=== PATIENT | female | born 1960 | race Caucasian/White ===

== ENCOUNTER 2016-05-28 07:24 | Outpatient (CLI) ==
[2016-05-16 10:21] VITALS: BMI 24.7
[2016-05-28 08:16] LABS: CREATININE 0.84 mg/dL (0.60-1.30)
--- NOTE | 2016-05-28 10:04 | CT ---
EXAM: CT Abdomen with contrast. CT Pelvis with contrast. HISTORY: Rectal bleeding. Lower abdominal pain. COMPARISON: 02/26/2009. TECHNIQUE: Multiple axial images of the abdomen and pelvis were obtained following intravenous admi nistration of 75 mL of Omnipaque 350, low osmolar. Images were reformatted in the coronal plane. FINDINGS: The lung bases are clear. Degenerative changes present in the spine. Gallbladder is absent. The liver, pancreas, spleen, and adrenal glands are unremarkable. Right kidney is normal. There are multiple partially exophytic masses within the left kidney measur e between 70 and 98 HU. These are best seen on axial images 19, 26, 33 and 36 and coronal images 44 , 50, 58, and 60 with the largest measuring 1.6 cm diameter on coronal image 60, and 1.7 cm on coron al image 58. There are multiple additional subcentimeter low density left renal cortical lesions. No hydronephrosis identified. There is no evidence for bowel obstruction. Mild wall thickening of the rectum noted with mild edward rectal edema. No pneumatosis seen. Appendix not identified. Uterus is absent. Urinary bladder is unremarkable. No free fluid, free air or lymphadenopathy seen. Tiny fat-containing umbilical byron ia noted. Atherosclerotic calcifications are present. IMPRESSION: 1. Mild rectal wall thickening likely infectious or inflammatory in nature. 2. Multiple indeterminate left renal lesions which could represent complicated cysts or multifocal neoplasm. Correlation with abdominal MRI recommended.
== END 2016-05-28 07:25 | disposition home or self-care (01) ==
LOC: RAD 07:24
PROVIDERS: ATTEND Family Medicine
DX: K62.5 Hemorrhage of anus and rectum (principal); R10.30 Lower abdominal pain, unspecified
CPT/HCPCS: 36415; 82565

== ENCOUNTER 2016-05-31 08:46 | Outpatient (CLI) ==
[2016-05-16 10:21] VITALS: BMI 24.7
== END 2016-05-31 08:47 | disposition home or self-care (01) ==
LOC: LAB 08:46
PROVIDERS: ATTEND Family Medicine
DX: K62.89 Other specified diseases of anus and rectum (principal)
CPT/HCPCS: 87493

== ENCOUNTER 2018-08-18 10:10 | Outpatient (CLI) ==
[2016-05-16 10:21] VITALS: BMI 24.7
--- NOTE | 2018-08-18 10:53 | US ---
EXAM: ULTRASOUND LOWER EXTREMITY VENOUS DOPPLER EXAM HISTORY: Leg pain and swelling. FINDINGS: Left lower extremity venous Doppler exam. Real time chiang-scale, Doppler spectral analysis and color-flow Doppler imaging performed. The veins targeted for evaluation include the common femo ral, greater saphenous, profundus, femoral, popliteal, peroneal, anterior tibial and posterior tibial . The evaluated veins demonstrated normal spontaneous flow and compression without evidence of thr ombosis. IMPRESSION: No venous thrombosis identified within the areas evaluated.
== END 2018-08-18 10:11 | disposition home or self-care (01) ==
LOC: RAD 10:10
PROVIDERS: ATTEND Family Medicine
DX: M79.605 Pain in left leg (principal); M79.89 Other specified soft tissue disorders